=== PATIENT | male | born 1980 | race Caucasian/White ===

== ENCOUNTER 2021-05-28 17:16 | Inpatient (IN) | payer SELFPAY ==
[2021-05-28] VITALS (7 sets, daily range): BP systolic 80–110; BP diastolic 50–86
[~2021-05-28] VITALS: Ht 172.7 cm; Wt 75.0 kg
[2021-05-28] MEDS ORDERED: ZIPRASIDONE IM 20 MG VIAL. IM ONE (17:45)
--- NOTE | 2021-05-28 17:45 | PHYS DOC ---
Past Medical History Past Medical History: Alcoholism, Anxiety, Schizophrenia Additional Past Medical Histor: PTSD, (GERMAIN KHAN PRECISION MILLWRIGHT) Past Surgical History: No Surgical History (GERMAIN KHAN APRN) Smoking Status: Smoker Current Stat Unkno Alcohol Use: Heavy Drug Use: Marijuana (GERMAIN KHAN APRN) Smoking Status: Current Every Day Smoker Alcohol Use: Heavy Drug Use: Marijuana (MACHELLE KOENIG DO) General Adult EDM: Chief Complaint: MEDICAL CLEARANCE HPI: HPI: Patient is a 40-year-old male that was brought today via [facility] [employer] for medical clearance. When patient got to the emergency department he states that he took multiple pills of Zyprexa, Remeron, and Wellbutrin. Patient states that he has also had some alcohol today approximately fifth. Patient states he was at [facility] yesterday in the psychiatric floor for SI, he states that he was released yesterday morning and was told to follow-up with his mental health provider. Patient is yelling at the pleased man in the room, he is also hitting himself in the head, and he has a strong odor of alcohol and he is very hard to redirect into answering questions. Patient is in custody at this time, and he has been handcuffed for his and our safety. He is being very verbally abusive towards staff and towards the police officers, he is using foul language and we have multiple children the department he has tried to redirect him to use more appropriate language and he has refused. (GERMAIN KHAN PRECISION MILLWRIGHT) Review of Systems: Review of Systems: Constitutional: Denies fever or chills. [] Eyes: Denies change in visual acuity. [] HENT: Denies nasal congestion or sore throat. [] Respiratory: Denies cough or shortness of breath. [] Cardiovascular: Denies chest pain or edema. [] GI: Denies abdominal pain, nausea, vomiting, bloody stools or diarrhea. [] : Denies dysuria. [] Musculoskeletal: Denies back pain or joint pain. [] Integument: Denies rash. [] Neurologic: Denies headache, focal weakness or sensory changes. [] Endocrine: Denies polyuria or polydipsia. [] Lymphatic: Denies swollen glands. [] Psychiatric: Denies depression or anxiety. [] (GERMAIN KHAN PRECISION MILLWRIGHT) Heart Score: C/O Chest Pain: N/A Risk Factors: Risk Factors: DM, Current or recent (<one month) smoker, HTN, HLP, family history of CAD, obesity. Risk Scores: Score 0 - 3: 2.5% MACE over next 6 weeks - Discharge Home Score 4 - 6: 20.3% MACE over next 6 weeks - Admit for Clinical Observation Score 7 - 10: 72.7% MACE over next 6 weeks - Early Invasive Strategies (GERMAIN KHAN PRECISION MILLWRIGHT) Current Medications: Current Medications Medications (Trade) Dose Ordered Sig/Maria Luisa Route PRN Reason Start Time Stop Time Status Last Admin Dose Admin Lorazepam (Ativan Inj) 2 mg 1X ONCE IVP 05/28/21 18:15 05/28/21 18:16 DC 05/28/21 18:33 Sodium Chloride 1,000 ml @ 999 mls/hr 1X ONCE IV 05/28/21 18:15 05/28/21 19:15 DC 05/28/21 18:33 Multivitamins (Thera M Plus) 1 tab DAILY PO 05/28/21 19:30 05/28/21 19:34 Folic Acid (Folic Acid) 1 mg DAILY PO 05/28/21 19:30 05/28/21 19:34 Thiamine Mononitrate (Vitamin B-1) 100 mg DAILY PO 05/28/21 19:30 05/28/21 19:34 (GERMAIN KHAN PRECISION MILLWRIGHT) Allergies: Allergies: Allergies Coded Allergies Type Severity Reaction Last Updated Verified haloperidol Allergy Unknown 05/28/21 Yes (GERMAIN KHAN PRECISION MILLWRIGHT) Physical Exam: PE: Constitutional: Well developed, well nourished, MODERATE distress, non-toxic appearance. [] HENT: Normocephalic, atraumatic, bilateral external ears normal, oropharynx moist, no oral exudates, nose normal. [] Eyes: PERRLA, EOMI, conjunctiva normal, no discharge. [] Neck: Normal range of motion, no tenderness, supple, no stridor. [] Cardiovascular:Heart rate tachycardia Lungs & Thorax: Bilateral breath sounds clear to auscultation [] Abdomen: Bowel sounds normal, soft, no tenderness, no masses, no pulsatile masses. [] Skin: Warm, dry, no erythema, no rash. [] Back: No tenderness, no CVA tenderness. [] Extremities: No tenderness, no cyanosis, no clubbing, ROM intact, no edema. [] Neurologic: Alert and oriented X 3, normal motor function, normal sensory function, no focal deficits noted. [] Psychologic: Affect manic, judgement normal, mood anxious and angry, yelling at staff, hitting self in head. [] (GERMAIN KHAN APRN) Current Patient Data: Labs: Laboratory Tests Test 05/28/21 17:37 05/28/21 17:52 05/28/21 18:30 Sodium Level 144 mmol/L Potassium Level 4.3 mmol/L Chloride Level 106 mmol/L Carbon Dioxide Level 23 mmol/L Anion Gap 15 Blood Urea Nitrogen 16 mg/dL Creatinine 1.0 mg/dL Estimated GFR (Cockcroft-Gault) 83.6 BUN/Creatinine Ratio 16 Glucose Level 112 mg/dL Calcium Level 7.9 mg/dL Total Bilirubin 0.2 mg/dL Aspartate Amino Transf (AST/SGOT) 16 U/L Alanine Aminotransferase (ALT/SGPT) 39 U/L Alkaline Phosphatase 76 U/L Total Protein 7.8 g/dL Albumin 3.8 g/dL Albumin/Globulin Ratio 1.0 White Blood Count 5.5 x10^3/uL Red Blood Count 4.42 x10^6/uL Hemoglobin 14.2 g/dL Hematocrit 41.9 % Mean Corpuscular Volume 95 fL Mean Corpuscular Hemoglobin 32 pg Mean Corpuscular Hemoglobin Concent 34 g/dL Red Cell Distribution Width 13.5 % Platelet Count 325 x10^3/uL Neutrophils (%) (Auto) 57 % Lymphocytes (%) (Auto) 34 % Monocytes (%) (Auto) 6 % Eosinophils (%) (Auto) 3 % Basophils (%) (Auto) 1 % Neutrophils # (Auto) 3.1 x10^3/uL Lymphocytes # (Auto) 1.8 x10^3/uL Monocytes # (Auto) 0.3 x10^3/uL Eosinophils # (Auto) 0.1 x10^3/uL Basophils # (Auto) 0.0 x10^3/uL Creatine Kinase 152 U/L Troponin I High Sensitivity 7 ng/L Salicylates Level 0.4 mg/dL Salicylate Last Dose Date Unknown Salicylate Last Dose Time Unknown Acetaminophen Level < 2.0 mcg/ml Acetaminophen Last Dose Date Unknown Acetaminophen Last Dose Time Unknoen Ethyl Alcohol Level 227 mg/dL Urine Collection Type Unknown Urine Color Yellow Urine Clarity Clear Urine pH 6.0 Urine Specific [place] 1.025 Urine Protein Negative mg/dL Urine Glucose (UA) Negative mg/dL Urine Ketones (Stick) Negative mg/dL Urine Blood Trace Urine Nitrite Negative Urine Bilirubin Negative Urine Urobilinogen Dipstick 0.2 mg/dL Urine Leukocyte Esterase Negative Urine RBC 1-2 /HPF Urine WBC 1-4 /HPF Urine Squamous Epithelial Cells Few /LPF Urine Bacteria 0 /HPF Urine Opiates Screen Neg Urine Methadone Screen Neg Urine Barbiturates Neg Urine Phencyclidine Screen Neg Urine Amphetamine/Methamphetamine Neg Urine Benzodiazepines Screen Neg Urine Cocaine Screen Neg Urine Cannabinoids Screen Pos Urine Ethyl Alcohol Pos Current Medications Medications (Trade) Dose Ordered Sig/Maria Luisa Route PRN Reason Start Time Stop Time Status Last Admin Dose Admin Ziprasidone (Geodon Im) 20 mg 1X ONCE IM 05/28/21 17:45 05/28/21 18:13 DC Lorazepam (Ativan Inj) 2 mg 1X ONCE IVP 05/28/21 18:15 05/28/21 18:16 DC 05/28/21 18:33 Sodium Chloride 1,000 ml @ 999 mls/hr 1X ONCE IV 05/28/21 18:15 05/28/21 19:15 DC 05/28/21 18:33 Lorazepam (Ativan Inj) 2 mg PRN Q4HRS PRN IVP ANXIETY / AGITATION 05/28/21 19:00 Multivitamins (Thera M Plus) 1 tab DAILY PO 05/28/21 19:30 05/28/21 19:34 Folic Acid (Folic Acid) 1 mg DAILY PO 05/28/21 19:30 05/28/21 19:34 Thiamine Mononitrate (Vitamin B-1) 100 mg DAILY PO 05/28/21 19:30 05/28/21 19:34 Vital Signs: Vital Signs Date Time Temp Pulse Resp B/P (MAP) Pulse Ox O2 Delivery O2 Flow Rate FiO2 05/28/21 19:31 110 20 108/52 (70) 99 Room Air 05/28/21 17:25 98.7 130 16 117/85 (96) 96 Room Air 98.7 Vital Signs Date Time Temp Pulse Resp B/P (MAP) Pulse Ox O2 Delivery O2 Flow Rate FiO2 05/28/21 17:25 98.7 130 16 117/85 (96) 96 Room Air 98.7 (GERMAIN KHAN APRN) EKG: EKG: EKG done at [address] Koenig at 1824 no STEMI shows sinus tachycardia with no ectopy at a rate of 110 with a [place] interval of 156 ms with a QTC of 436 ms [] (GERMAIN KHAN APRN) Radiology/Procedures: Radiology/Procedures: [] (GERMAIN KHAN APRN) Course & Med Decision Making: Course & Med Decision Making Pertinent Labs and Imaging studies reviewed. (See chart for details) 175 POISON CONTROL consulted regarding this patient. Recommendations from poison control is to draw basic laboratories such as CBC, CMP, salicylate, acetaminophen, urine drug screen, twelve-lead EKG and continuous cardiac monitoring. I did recommend that since the patient took Wellbutrin 2 patient to be admitted for cardiac monitoring for the next 24 hours. Machelle from our psychiatric assessment team is at the bedside to talk with patient, but since the patient is being admitted they will speak to him at length after he is on the floor. 1800 Dr. Koenig at the bedside speaking to patient, we have been told by [facility] [employer] that he is no longer in custody and he will need to be a one-on-one with one of the staff here at [facility]. Patient has been reminded that verbal and physical abuse of staff is not tolerated, he did state that he will accept a dose of Ativan to help calm him down, and he verbalized understanding that verbal and physical abuse of staff is not in to be tolerated. [address] Camacho regarding this patient and he is agreeable to admitting this patient for overdose of Wellbutrin for 24-hour observation which is recommended by the poison control. Patient will be a one-to-one due to his suicidal ideations. Patient is currently resting quietly. (GERMAIN KHAN APRN) Course & Med Decision Making I was asked to see this patient by the nurse practitioner. The patient reported multiple psychotropic drug ingestion while being arrested. He is hostile, angry, aggressive, verbally abusive to staff and to the police who brought him in for medical evaluation. The nurse practitioner had already contacted poison control. Of course hospitalization and medical admission were recommended, as appropriate. I agree with this of course. I reviewed the patient's EKG. No obvious interval or QRS changes are noted. I directly spoke with the patient, examined him myself. He is agitated, but I was able to verbally redirect him. I told him that verbal or physical abuse will absolutely not be tolerated. I explained that would be happy to provide something to help him with his agitation and anxiety. I explained that if he becomes aggressive or violent towards staff, he will be restrained immediately. The police are releasing him from the custody for now. The patient ultimately calmed down after the police left and removed the handcuffs. He agrees to admission. He was given 2 mg of IV Ativan. He is given IV fluids. He was accepted for admission by Dr. Camacho. (MACHELLE KOENIG DO) Dragon Disclaimer: Dragdeirdre Disclaimer: This electronic medical record was generated, in whole or in part, using a voice recognition dictation system. (GERMAIN KHAN APRN) Departure Departure Impression: Primary Impression: Suicidal ideations Additional Impressions: Overdose Qualified Codes: T50.902A - Poisoning by unspecified drugs, medicaments and biological substances, intentional self-harm, initial encounter Alcohol intoxication Qualified Codes: F10.929 - Alcohol use, unspecified with intoxication, unspecified Aggressive behavior Disposition: ADMITTED INPATIENT Admitting Physician: ESSENCE (GERMAIN KHAN APRN) Admitting Physician: ESSENCE (Dr. Camacho) (MACHELLE KOENIG DO) Condition: STABLE GERMAIN KHAN APRN May 28, 2021 17:45 MACHELLE KOENIG DO May 29, 2021 01:36
[2021-05-28 18:08] LABS: BASO % 1 % (0-3); EOS # 0.1 x10^3/uL (0.0-0.7); EOS % 3 % (0-3); HEMATOCRIT 41.9 % (39.0-53.0); HEMOGLOBIN 14.2 g/dL (13.0-17.5); LYMPH # 1.8 x10^3/uL (1.0-4.8); LYMPH % 34 % (24-48); MEAN CORPUSCULAR HEMOGLOBIN 32 pg (25-35); MEAN CORPUSCULAR HGB CONC 34 g/dL (31-37); MEAN CORPUSCULAR VOLUME 95 fL (79-100); MONO # 0.3 x10^3/uL (0.0-1.1); MONO % 6 % (0-9); NEUT # 3.1 x10^3/uL (1.8-7.7); NEUT % 57 % (31-73); PLATELET COUNT 325 x10^3/uL (140-400); RED BLOOD COUNT 4.42 x10^6/uL (4.30-5.70); RED CELL DISTRIBUTION WIDTH 13.5 % (11.5-14.5); WHITE BLOOD COUNT 5.5 x10^3/uL (4.0-11.0)
[2021-05-28] MEDS ORDERED: IV NORMAL SALINE 1000ML BAG 1,000 ML IV ONE (18:15)
[2021-05-28 18:25] LABS: CALCIUM 7.9 mg/dL (8.5-10.1); GFR 83.6; POTASSIUM 4.3 mmol/L (3.5-5.1)
[2021-05-28 18:31] LABS: ALBUMIN 3.8 g/dL (3.4-5.0); TOTAL BILIRUBIN 0.2 mg/dL (0.2-1.0); TOTAL PROTEIN 7.8 g/dL (6.4-8.2)
[2021-05-28 18:35] LABS: ACETAMIN < 2.0 mcg/ml (10-30); ETHANOL 227 mg/dL (0-10); SALIC 0.4 mg/dL (2.8-20.0)
[2021-05-28 18:43] LABS: BARBITURATES NEG (NEG); BENZODIAZEPINES NEG (NEG); CANNABINOIDS POS (NEG); COCAINE NEG (NEG); METHADONE NEG (NEG); OPIATES NEG (NEG); PHENCYCLIDINE NEG (NEG)
--- NOTE | 2021-05-28 18:54 | EKG ---
[facility] [address] [place] [address] Test Date: 2021-05-28 Test Time: 18:16:08 Pat Name: MEHUL BOONE Department: Room: Gender: M Crime Lab Analyst: : 1980 Requested By: GERMAIN KHAN Order Number: [id number] Reading MD: Walter Carrion MD Measurements Intervals [place] Rate: 110 P: 63 MA: 156 QRS: 52 QRSD: 90 T: 33 QT: 318 QTc: 436 Interpretive Statements SINUS TACHYCARDIA OTHERWISE NORMAL ECG RI6.02 No previous ECG available for comparison Electronically Signed On 05-29-2021 15:53:28 PROCESS LEAD by Walter Carrion MD
[2021-05-28 19:10] LABS: AMPHETAMINE/METHAMPHETAMINE NEG (NEG)
[2021-05-28 19:11] LABS: BILIRUBIN,URINE NEGATIVE (NEG); CLARITY,URINE CLEAR; COLOR,URINE YELLOW
[2021-05-28 19:12] LABS: BACTERIA,URINE 0 /HPF (0-FEW); NITRITE,URINE NEGATIVE (NEG); PROTEIN,URINE NEGATIVE (NEG-TRACE); UROBILINOGEN,URINE 0.2 mg/dL (0.2 mg/dL)
[2021-05-28] MEDS: MULTIVITAMIN with MINERAL TABLET. PO SCH (19:34)
[2021-05-28] MEDS: FOLIC ACID 1 MG TABLET. PO SCH (19:34)
[2021-05-28] MEDS: THIAMINE 100 MG TABLET. PO SCH (19:34)
--- NOTE | 2021-05-28 20:40 | NUR ---
Patient admitted to room 663. 1:1 tech at bedside to monitor. Patient very sleepy and arouses to name but dozes back to sleep. Unable to do admission documentation at this time. Will try do complete when Patient awakens. Removal of items per suicide protocol initiated. 1:1 observation continues.
--- NOTE | 2021-05-28 21:53 | NUR ---
Emergency nurse transferred Ivan Simpson from poison control to this number for updates on lab work/ vitals.
[2021-05-29] VITALS (15 sets, daily range): BP systolic 80–121; BP diastolic 48–72
[2021-05-29] MEDS: FOLIC ACID 1 MG TABLET. PO SCH (08:34)
[2021-05-29] MEDS: THIAMINE 100 MG TABLET. PO SCH (08:34)
[2021-05-29] MEDS: MULTIVITAMIN with MINERAL TABLET. PO SCH (08:34)
--- NOTE | 2021-05-29 10:46 | NUR ---
SS following for discharge planning. SS reviewed pt chart and discussed with pt RN. Pt is currently on room air. 1:1 for overdose, ETOH, and possible SI. SS was informed that pt was recently discharged from [facility] on 05/27/2021 and was then admitted to [facility] on 05/28/2021. Diaz from PAT team met with pt. No SI or HI. Pt denies depression. Pt reports anxiety and stress. PAT team cleared pt for discharge and provided resources and safety plan. Pt discharging to [facility] at [address] [place] [address], [facility], [id number], . Cab pass being provided. Pt's RN and physician notified.
--- NOTE | 2021-05-29 11:02 | NUR ---
Diaz removed the patient from suicide watch at 1030. He will be discharged.
--- NOTE | 2021-05-29 11:32 | SSS ---
DATE OF SERVICE: 05/29/2021 ADMIT DATE: 05/28/2021 CHIEF COMPLAINT: Possible suicidal ideation. HISTORY OF PRESENT ILLNESS: The patient is a pleasant 40-year-old male who just left [facility]'s psych unit. Apparently, he was drinking too much, he took couple of pills last night. He was brought in by ambulance and the police. Today, I saw and examined him. He is at his baseline and wants to go home. We had the psychiatric assessment team see him. They are okay with him going home. Before I could get the orders in, he left AMA. KARLA/MALLORIE DR: Jaquan TID: [id number]
--- NOTE | 2021-05-29 11:55 | NUR ---
pt left AMA today at approx 1125. Patient was going to be discharged today, however, did not want to wait for Dr. New to prescribe anything or put in discharge order. Dr. New aware of situation via telephone. Security walked patient out Addendum: 05/29/21 at 1207 by LESLIE ACEVES RN IV discontinued by patient himself. no complications. All belongings taken with patient.
== END 2021-05-29 11:25 | disposition left against medical advice (07) | DRG 918 ==
LOC: ER 17:16 → 6 SOUTH 18:45
PROVIDERS: ADMIT Student in an Organized Health Care Education/Training Program; ATTEND Student in an Organized Health Care Education/Training Program
DX: T50.902A Poisoning by unspecified drugs, medicaments and biological substances, intentional self-harm, initial encounter (principal); Z53.29 Procedure and treatment not carried out because of patient's decision for other reasons; Z87.891 Personal history of nicotine dependence; F43.10 Post-traumatic stress disorder, unspecified; F20.9 Schizophrenia, unspecified; F10.229 Alcohol dependence with intoxication, unspecified; F41.9 Anxiety disorder, unspecified; Y92.89 Other specified places as the place of occurrence of the external cause
CPT/HCPCS: 36415; 80053; 80307; 80329; 81001; 82550; 84484; 85025; 93005; 96361; 96374; G0480; J2060; J7030; 99285-25; G0378

== ENCOUNTER 2021-06-04 20:22 | Emergency (ER) | payer SELFPAY ==
[~2021-06-04] VITALS: Ht 175.3 cm; Wt 70.0 kg
[2021-06-04] MEDS ORDERED: IV NORMAL SALINE 1000ML BAG 1,000 ML IV ONE (20:45)
[2021-06-04 20:46] LABS: BASO # 0.1 x10^3/uL (0.0-0.2); BASO % 1 % (0-3); EOS # 0.2 x10^3/uL (0.0-0.7); EOS % 3 % (0-3); HEMATOCRIT 39.3 % (39.0-53.0); HEMOGLOBIN 13.2 g/dL (13.0-17.5); LYMPH # 2.1 x10^3/uL (1.0-4.8); LYMPH % 26 % (24-48); MEAN CORPUSCULAR HEMOGLOBIN 32 pg (25-35); MEAN CORPUSCULAR HGB CONC 34 g/dL (31-37); MEAN CORPUSCULAR VOLUME 94 fL (79-100); MONO # 0.7 x10^3/uL (0.0-1.1); MONO % 8 % (0-9); NEUT # 5.1 x10^3/uL (1.8-7.7); NEUT % 63 % (31-73); PLATELET COUNT 306 x10^3/uL (140-400); RED BLOOD COUNT 4.18 x10^6/uL (4.30-5.70); RED CELL DISTRIBUTION WIDTH 12.9 % (11.5-14.5); WHITE BLOOD COUNT 8.1 x10^3/uL (4.0-11.0)
--- NOTE | 2021-06-04 20:57 | PHYS DOC ---
Past Medical History Past Medical History: Alcoholism, Anxiety, Schizophrenia Additional Past Medical Histor: PTSD, DRUG USE, MULTIPLE SI ATTEMPTS (NELDA GOODE BRINE TANK TENDER) Past Surgical History: No Surgical History (NELDA GOODE BRINE TANK TENDER) Smoking Status: Current Every Day Smoker Alcohol Use: Heavy Drug Use: Marijuana (NELDA GOODE BRINE TANK TENDER) General Adult EDM: Chief Complaint: SUBSTANCE ABUSE HPI: HPI: Patient is a 40 year old male with history of schizophrenia, anxiety, alcoholism presenting today to be evaluated for suicidal ideation and m ethamphetamine use. Patient states he used unknown amount of methamphetamine in the last 3 to 4 days in an effort to kill himself. He will not define how he was using it. He states his friend killed himself in the last couple days by overdosing on his medicines. He states he feels he should kill himself to. He has a flight of ideas including statements like he is seeing the devil. He states he is homeless and lives with the devil.. Presents to the ED today with paperwork from different drug rehab facilities in [facility]. He will not clarify if he was at a different facility today. (NELDA GOODE BRINE TANK TENDER) Review of Systems: Review of Systems: Constitutional: Denies fever or chills. [] Eyes: Denies change in visual acuity. [] HENT: Denies nasal congestion or sore throat. [] Respiratory: Denies cough or shortness of breath. [] Cardiovascular: Denies chest pain or edema. [] GI: Denies abdominal pain, nausea, vomiting, bloody stools or diarrhea. [] : Denies dysuria. [] Musculoskeletal: Denies back pain or joint pain. [] Integument: Denies rash. [] Neurologic: Denies headache, focal weakness or sensory changes. [] Psychiatric: Reports SI and methamphetamine use (NELDA GOODE BRINE TANK TENDER) Heart Score: C/O Chest Pain: N/A Risk Factors: Risk Factors: DM, Current or recent (<one month) smoker, HTN, HLP, family history of CAD, obesity. Risk Scores: Score 0 - 3: 2.5% MACE over next 6 weeks - Discharge Home Score 4 - 6: 20.3% MACE over next 6 weeks - Admit for Clinical Observation Score 7 - 10: 72.7% MACE over next 6 weeks - Early Invasive Strategies (NELDA GOODE BRINE TANK TENDER) Current Medications: Current Medications Medications (Trade) Dose Ordered Sig/Maria Luisa Start Time Stop Time Status Last Admin Dose Admin Sodium Chloride 1,000 ml @ 1,000 mls/hr 1X ONCE 06/04/21 20:45 06/04/21 21:44 (NELDA GOODE BRINE TANK TENDER) Allergies: Allergies: Allergies Coded Allergies Type Severity Reaction Last Updated Verified haloperidol Allergy Severe SEIZURES 05/29/21 Yes (NELDA GOODE BRINE TANK TENDER) Physical Exam: PE: Constitutional: Well developed, well nourished, no acute distress, non-toxic appearance. [] HENT: Normocephalic, atraumatic, bilateral external ears normal, oropharynx moist, no oral exudates, nose normal. [] Eyes: PERRLA, EOMI, conjunctiva normal, no discharge. [] Neck: Normal range of motion, no tenderness, supple, no stridor. [] Cardiovascular: Tachycardic Lungs & Thorax: Bilateral breath sounds clear to auscultation [] Abdomen: Bowel sounds normal, soft, no tenderness, no masses, no pulsatile masses. [] Skin: Warm, dry, no erythema, no rash. [] Back: No tenderness, no CVA tenderness. [] Extremities: No tenderness, no cyanosis, no clubbing, ROM intact, no edema. [] Neurologic: Alert and oriented X 3, normal motor function, normal sensory function, no focal deficits noted. [] Psychologic: Restless, fidgeting, flight of ideas (NELDA GOODE BRINE TANK TENDER) Current Patient Data: Labs: Laboratory Tests Test 06/04/21 20:35 White Blood Count 8.1 x10^3/uL (4.0-11.0) Red Blood Count 4.18 x10^6/uL (4.30-5.70) L Hemoglobin 13.2 g/dL (13.0-17.5) Hematocrit 39.3 % (39.0-53.0) Mean Corpuscular Volume 94 fL (79-100) Mean Corpuscular Hemoglobin 32 pg (25-35) Mean Corpuscular Hemoglobin Concent 34 g/dL (31-37) Red Cell Distribution Width 12.9 % (11.5-14.5) Platelet Count 306 x10^3/uL (140-400) Neutrophils (%) (Auto) 63 % (31-73) Lymphocytes (%) (Auto) 26 % (24-48) Monocytes (%) (Auto) 8 % (0-9) Eosinophils (%) (Auto) 3 % (0-3) Basophils (%) (Auto) 1 % (0-3) Neutrophils # (Auto) 5.1 x10^3/uL (1.8-7.7) Lymphocytes # (Auto) 2.1 x10^3/uL (1.0-4.8) Monocytes # (Auto) 0.7 x10^3/uL (0.0-1.1) Eosinophils # (Auto) 0.2 x10^3/uL (0.0-0.7) Basophils # (Auto) 0.1 x10^3/uL (0.0-0.2) Laboratory Tests 06/04/21 20:35 Vital Signs: Vital Signs Date Time Temp Pulse Resp B/P (MAP) Pulse Ox O2 Delivery O2 Flow Rate FiO2 06/04/21 20:32 97.9 93 26 146/81 (102) 96 Room Air 97.9 (NELDA GOODE BRINE TANK TENDER) EKG: EK interpreted by DR. Dowell sinus rhythm HR 78 no STEMI[] (NELDA GOODE BRINE TANK TENDER) Radiology/Procedures: Radiology/Procedures: [] (NELDA GOODE APRN) Course & Med Decision Making: Course & Med Decision Making Pertinent Labs and Imaging studies reviewed. (See chart for details) This is a 40-year-old male patient presented to the ED today stating he took unknown amount of methamphetamine in the last 3 to 4 days in an effort to kill himself. 1:1 was ordered Patient was in the ED a week ago for overdose, he was noted to be verbally and physically aggressive to staff 2049 Spoke to poison control, lab work-up, IV fluids initiated per their recommendation, poison control also requested we observe patient for 6 hours from his last use of methamphetamine then he can be discharged per psych recommendation. EKG is negative, CBC, troponin, CMP, CK are normal. He was given Ativan 1 mg in the ED and is resting comfortably. PAT team will evaluate in AM [address] Dowell (NELDA GOODE APRN) Course & Med Decision Making Assumed care at end of MLP shift. Patient has been asleep- no issues. Patient pending assessment this AM. Patient signed out to Dr Koenig. (GIULIANO DOWELL DO) Course & Med Decision Making This patient was seen by the PAT team, and he was accepted at [facility]. He now denies SI or HI symptoms. He is hemodynamically stable has been resting comfortably, he manifests no evidence of distress. He has been calm and cooperative since my assumption of care at 0600. He will be sent via cab to [facility]. He is comfortable with the plan of care. He is medically stable for transfer to [facility]. (AMANDA KOENIG DO) Dragon Disclaimer: Dragon Disclaimer: This electronic medical record was generated, in whole or in part, using a voice recognition dictation system. (NELDA GOODE APRN) Departure Departure Impression: Primary Impression: Suicidal ideations Additional Impression: Methamphetamine use Disposition: 04 INTERMEDIATE CARE FACILITY Condition: STABLE Referrals: MIKE MERAZ MD (PCP) Patient Instructions: Methamphetamine Abuse, Complications, Mood Disorders Additional Instructions: Please go to [facility] to complete your treatment for substance abuse and for your mental health. Return for any emergency medical condition, if you are acutely injured, sustained any trauma, have chest pain, shortness of breath, weakness or any other concerns. NELDA GOODE APRN Jun 04, 2021 20:57 GIULIANO DOWELL DO Jun 05, 2021 06:08 AMANDA KOENIG DO Jun 05, 2021 10:53
[2021-06-04 21:01] LABS: CALCIUM 8.5 mg/dL (8.5-10.1); CREATININE 0.8 mg/dL (0.7-1.3); GFR 108.2; POTASSIUM 3.6 mmol/L (3.5-5.1)
[2021-06-04 21:05] LABS: ACETAMIN < 2 mcg/ml (10-30); SALIC 0.4 mg/dL (2.8-20.0)
[2021-06-04 21:07] LABS: ALBUMIN 3.6 g/dL (3.4-5.0); MAGNESIUM 1.8 mg/dL (1.8-2.4); TOTAL BILIRUBIN 0.5 mg/dL (0.2-1.0); TOTAL PROTEIN 7.1 g/dL (6.4-8.2)
[2021-06-05 00:17] LABS: BARBITURATES NEG (NEG); BENZODIAZEPINES NEG (NEG); CANNABINOIDS POS (NEG); COCAINE NEG (NEG); METHADONE NEG (NEG); OPIATES NEG (NEG); PHENCYCLIDINE NEG (NEG)
[2021-06-05 00:19] LABS: AMPHETAMINE/METHAMPHETAMINE POS (NEG)
[2021-06-05 00:21] LABS: BILIRUBIN,URINE NEGATIVE (NEG); CLARITY,URINE CLEAR; COLOR,URINE YELLOW; NITRITE,URINE NEGATIVE (NEG); PH,URINE 6.5 (<5.0-8.0); PROTEIN,URINE NEGATIVE (NEG-TRACE); UROBILINOGEN,URINE 0.2 mg/dL (0.2 mg/dL)
[2021-06-05 00:22] LABS: BACTERIA,URINE 0 /HPF (0-FEW); RBC,URINE OCC /HPF (0-2); WBC,URINE OCC /HPF (0-4)
--- NOTE | 2021-06-05 00:39 | EKG ---
[facility] [address] [place] [address] Test Date: 2021-06-04 Test Time: 20:48:25 Pat Name: MEHUL BOONE Department: Room: Gender: M Pr Manager: : 1980 Requested By: NELDA GOODE Order Number: [id number] Reading MD: Walter Carrion MD Measurements Intervals [place] Rate: 78 P: 67 MA: 148 QRS: 56 QRSD: 92 T: 48 QT: 370 QTc: 425 Interpretive Statements SINUS RHYTHM Electronically Signed On 06-05-2021 9:47:34 SITE OPERATIONS MANAGER by Walter Carrion MD
[2021-06-05 07:00] VITALS: BP 127/87
--- NOTE | 2021-06-05 07:39 | NUR ---
Vital signs listed for 0400 and 0500 are not listed on the monitor as documented from warehouse shift supervisor. Per Rangel ([facility])'s report, vital signs are all up to date. Sanna HACKETT notified of the discrepancy(ies).
--- NOTE | 2021-06-06 11:22 | NUR ---
IP: Attempted to contact pt concerning covid results. Phone number provided is not in service.
== END 2021-06-05 11:12 ==
LOC: ER 20:22
DX: R45.851 Suicidal ideations (principal); F15.90 Other stimulant use, unspecified, uncomplicated; F17.200 Nicotine dependence, unspecified, uncomplicated; F43.10 Post-traumatic stress disorder, unspecified; Z20.822 Contact with and (suspected) exposure to COVID-19; F20.9 Schizophrenia, unspecified; Z88.8 Allergy status to other drugs, medicaments and biological substances
CPT/HCPCS: 36415; 80053; 80307; 80329; 81001; 82550; 83690; 83735; 84484; 85025; 87426; 93005; 96361; 96374; 99285; C9803; G0480; J2060; J7030; U0003